=== PATIENT | female | born 1990 | race American Indian/Alaskan Native ===

== ENCOUNTER 2017-03-06 14:07 | Outpatient (CLI) | payer MEDICAID ==
[2017-03-06 14:39] VITALS: BP 136/74
== END 2017-03-06 15:05 | disposition home or self-care (01) ==
LOC: TRG 14:07
PROVIDERS: ATTEND Obstetrics & Gynecology
DX: O47.1 False labor at or after 37 completed weeks of gestation (principal); Z87.891 Personal history of nicotine dependence; Z3A.39 39 weeks gestation of pregnancy
CPT/HCPCS: 59025

== ENCOUNTER 2017-03-10 13:22 | Inpatient (IN) | payer MEDICAID ==
[2017-03-10] MEDS ORDERED: NARCAN 0.4 MG/1 ML IV PRN (15:50)
[2017-03-10] MEDS ORDERED: ZOFRAN IV PRN (15:50)
[2017-03-10] MEDS ORDERED: ePHEDrine SULFATE IV PRN (15:50)
[2017-03-10] MEDS ORDERED: STADOL IV PRN (15:50)
[2017-03-10] MEDS ORDERED: BRETHINE IVP PRN (15:50)
[2017-03-10] MEDS ORDERED: XYLOCAINE 2% INFILTRATI ONE (15:50)
[2017-03-10] MEDS ORDERED: BRETHINE SUB-Q PRN (15:50)
[2017-03-10] MEDS ORDERED: MINERAL OIL PO PRN (15:50)
--- NOTE | 2017-03-10 15:55 | History and Physical Report ---
History of Present Illness Date of examination: 03/10/17 Date of admission: 03/10/17 13:55 Chief complaint: contractions History of present illness: Pt is a 26 year old female JAY 03/07/17 at 40w4d who presents with irregular contractions. She had a BPP that was 6/8 (-2 for movement). She denies vaginal bleeding or leakage of fluid. She has had care at [facility] since transfer into care at 34 weeks complicated by insufficient care, h/o trichomonas treated with negative test of cure. She is GBS negative. Past History Past Medical History: no pertinent history Past Surgical History: D&C [employer]UL[employer] History: trichomonas (treated with negative test of cure ) Family/Genetic History: other (unknow; adopted ) Social history: no significant social history - Obstetrical History Expected Date of Delivery: 03/07/17 Actual Gestation: 40 Week(s) 4 Day(s) : 5 Para: 1 Hx # Term Pregnancies: 1 Number of Pregnancies: 0 Spontaneous Abortions: 1 Induced : 2 Number of Living Children: 1 Medications and Allergies Allergies Allergy/AdvReac Type Severity Reaction Status Date / Time No Known Allergies Allergy Verified 03/06/17 14:43 Home Medications Medication Instructions Recorded Confirmed Last Taken Type Vit-Fe Fumar-FA [ 1 tab PO QDAY 03/06/17 03/10/17 03/10/17 08: 00 History Vitamin] Active Meds: Active Medications Butorphanol Tartrate (Stadol) 2 mg IV Q2H PRN PRN Reason: Pain , Severe (7-10) Dinoprostone (Cervidil) 10 mg VG ONCE ONE Stop: 03/10/17 15:51 Ephedrine Sulfate (Ephedrine Sulfate) 10 mg IV Q2M PRN PRN Reason: Hypotension Fentanyl (Sublimaze) 100 mcg IV Q2H PRN PRN Reason: Labor Pain Lactated Ringer's (Lactated Ringers) 1,000 mls @ 125 mls/hr IV DIRECT BRAYDON Oxytocin/Sodium Chloride (Pitocin/Ns 20 Unit/1000ml Drip) 20 units in 1,000 mls @ 125 mls/hr IV DIRECT BRAYDON Oxytocin/Sodium Chloride (Pitocin/Ns 30 Unit/500ml) 30 units in 500 mls @ 4 mls /hr IV TITR BRAYDON PRN Reason: Protocol Lidocaine (Xylocaine 2%) 20 ml INFILTRATI ONCE ONE Stop: 03/10/17 15:51 Mineral Oil (Mineral Oil) 30 ml PO QHS PRN PRN Reason: Constipation Naloxone HCl (Narcan 0.4 Mg/1 Ml) 0.1 mg IV Q2MIN PRN PRN Reason: Res Rate </= 8 or 02 SAT < 92% Ondansetron HCl (Zofran) 4 mg IV Q8H PRN PRN Reason: Nausea And Vomiting Terbutaline Sulfate (Brethine) 0.25 mg SUB-Q ONCE PRN PRN Reason: Hyperstimulation/Hypertonicity Terbutaline Sulfate (Brethine) 0.25 mg IVP ONCE PRN PRN Reason: Hyperstimulation/Hypertonicity Review of Systems All systems: negative - Vital Signs Vital signs: Vital Signs Temp Pulse Resp BP Pulse Ox 97.5 F L 113 H 18 138/90 100 03/10/17 13:35 03/10/17 13:35 03/10/17 13:35 03/10/17 13:35 03/10/17 13:35 Temp Pulse Resp BP Pulse Ox 97.5 F L 88 18 138/90 99 03/10/17 13:35 03/10/17 15:44 03/10/17 13:35 03/10/17 13:35 03/10/17 15:44 - Physical Exam Breasts: Positive: deferred Cardiovascular: Regular rate Lungs: Positive: Clear to auscultation Abdomen: Positive: soft (gravid, obese ) Genitourinary (Female): Positive: normal external genitalia Uterus: Positive: enlarged (gravid ) Extremities: Positive: edema - Obstetrical FHR: category 2 Uterine Contraction Monitor Mode: External Cervical Dilatation: 8 Cervical Effacement Percentage: 80 station: -1 Uterine Contraction Pattern: Irregular Uterine Tone Measurement Phase: Resting Uterine Contraction Intensity: Moderate Results Result Diagrams: 03/10/17 18:09 03/10/17 16:20 All other labs normal. Assessment and Plan A: IUP at 40w4d Non-reassuring status Active labor Obesity Insufficient Care GBS negative P: Admit to labor and delivery. Transitional labor. Routine intrapartum care. Closely monitor maternal and status.
--- NOTE | 2017-03-10 15:58 | Ultrasound Report ---
BIOPHYSICAL PROFILE: INDICATION: Post dates. Abdominal pain. COMPARISON: None similar at this institution. TECHNIQUE: Transabdominal ultrasound with Doppler interrogation. 2 - breathing movements 0 - movements 2 - posture and tone 2 - Qualitative amniotic fluid volume 6 - TOTAL SCORE OF POSSIBLE 8 Heart Rate (bpm) 149 CONCLUSION: Findings, as above.
[2017-03-10] MEDS ORDERED: PITOCin/NS 20 UNIT/1000ML DRIP 20 UNITS/1,000 ML BAG IV SCH (16:00)
[2017-03-10] MEDS ORDERED: CERVIDIL VG ONE (16:00)
[2017-03-10] MEDS ORDERED: SUBLIMAZE IV PRN (16:03)
[2017-03-10 16:41] LABS: Bilirubin,Urine NEG (Negative); Blood,Urine NEG (Negative); Color,Urine Yellow (Yellow); Mucus,Urine 1+ /HPF; Nitrite,Urine NEG (Negative); Urobilinogen,Urine < 2.0 mg/dL (<2.0)
[2017-03-10 16:58] LABS: Hematocrit TNR % (30.3-42.9); Hemoglobin TNR gm/dl (10.1-14.3); Mean Corpuscular HGB Conc TNR % (30-34); Mean Corpuscular Hemoglobin TNR pg (28-32); Mean Corpuscular Volume TNR fl (79-97); Red Blood Count TNR M/mm3 (3.65-5.03)
[2017-03-10 16:59] LABS: Mean Platelet Volume TNR fl (6-12); Platelet Count TNR K/mm3 (140-440); Red Cell Distribution Width TNR % (13.2-15.2)
[2017-03-10 17:13] LABS: Alanine Aminotransferase 9 units/L (7-56); Uric Acid 5.8 mg/dL (3.5-7.6)
[2017-03-10] MEDS: LACTATED RINGERS 1,000 ML IV SCH (18:33)
[2017-03-10 18:48] LABS: Hematocrit 32.9 % (30.3-42.9); Hemoglobin 10.6 gm/dl (10.1-14.3); Mean Corpuscular HGB Conc 32 % (30-34); Mean Corpuscular Hemoglobin 27 pg (28-32); Mean Corpuscular Volume 85 fl (79-97); Platelet Count 168 K/mm3 (140-440); Red Blood Count 3.87 M/mm3 (3.65-5.03); Red Cell Distribution Width 14.7 % (13.2-15.2)
[2017-03-10] MEDS ORDERED: AMBIEN PO PRN (19:50)
[2017-03-11] MEDS: LACTATED RINGERS 1,000 ML IV SCH ×3 (02:57→04:57)
[2017-03-11] MEDS ORDERED: fentaNYL-BUPIV 2 MCG/ML-0.125% 200 MCG/100 ML BAG EPIDURAL ONE (04:03)
[2017-03-11] MEDS ORDERED: NARCAN 2 MG/2 ML IV PRN (04:22)
[2017-03-11] MEDS ORDERED: ePHEDrine SULFATE IV PRN (04:22)
--- NOTE | 2017-03-11 04:22 | Anesthesia Consultation ---
Anesthesia Consult and Med Hx Date of service: 03/11/17 - Airway Anesthetic Teeth Evaluation: Good ROM Head & Neck: Adequate Mental/Hyoid Distance: Adequate Mallampati Class: Class II Intubation Access Assessment: Good - Pulmonary Exam CTA: Yes - Cardiac Exam Cardiac Exam: No Murmur - Pre-Operative Health Status ASA Pre-Surgery Classification: ASA2 Proposed Anesthetic Plan: Epidural - Pulmonary Hx Asthma: No COPD: No Hx Pneumonia: No - Cardiovascular System Hx Hypertension: No - Central Nervous System Hx Seizures: No Hx Psychiatric Problems: No - Endocrine Hx Renal Disease: No Hx End Stage Renal Disease: No Hx Hypothyroidism: No Hx Hyperthyroidism: No - Hematic Hx Anemia: No Hx Sickle Cell Disease: No - Other Systems Hx Alcohol Use: No
[2017-03-11] MEDS ORDERED: PITOCin/NS 30 UNIT/500ML 30 UNITS/500 ML BAG IV SCH ×2 (04:25→06:00)
--- NOTE | 2017-03-11 04:25 | Event Note ---
Date: 03/11/17 Pt more comfortable with epidural. Category II tracing. Cervix: /1. SROM after epidural. Begin pitocin augmentation. Monitor maternal and status.
[2017-03-11] MEDS ORDERED: fentaNYL-BUPIV 2 MCG/ML-0.125% 200 MCG/100 ML BAG EPIDURAL SCH (05:00)
[2017-03-11] MEDS ORDERED: XYLOCAINE 2% INFILTRATI ONE (05:37)
--- NOTE | 2017-03-11 06:05 | Procedure Note ---
OB Delivery Note - Delivery Date of Delivery: 03/11/17 Surgeon: HANNAH DICKERSON Estimated blood loss: other (400 mL) - Vaginal Delivery presentation: vertex Delivery position: OP Intrapartum events: decreased FHT variability, extend. bradycardia Delivery induction: cervidil Delivery augmentation: rupture of membranes, pitocin Delivery monitor: external FHT, external uterine Route of delivery: vacuum extraction Indicators for instrumentation: nonreassuring FHR tracing Delivery placenta: spontaneous Delivery cord: 3 umbilical vessels Episiotomy: none Delivery laceration: 2nd degree (perineal ) Delivery repair: vicryl Anesthesia: local, epidural Delivery comments: Pt progressed to complete/complete/+1. Head was noted to be in occiput posterior position. bradycardia noted. Kiwi vacuum applied and head delivered with two pulls no pop offs. Head delivered in direct OP presentation, quickly followed by shoulders and body. placed on maternal abdomen and bulb suctioned. Terminal meconium. Cord clamped and cut and handed to NICU staff in attendance for vacuum. Cord blood collected. Placenta delivered spontaneously. Vagina and perineum explored. Second degree perineal repaired with 2-0 Vicryl in a standard fashion. EBL 400 mL. - A at 1 minute: 8 at 5 minutes: 9 Gender: Male (3766g (8lb 5 oz) @ 0531 am)
[2017-03-11] MEDS ORDERED: SODIUM CHLORIDE FLUSH SYRINGE 10 ML IV PRN (08:30)
[2017-03-11] MEDS ORDERED: NORCO 5/325 PO PRN (09:00)
[2017-03-11] MEDS ORDERED: PITOCin/NS 20 UNIT/1000ML DRIP 20 UNITS/1,000 ML BAG IV SCH (09:00)
[2017-03-11] MEDS ORDERED: DERMOPLAST TP PRN (09:00)
[2017-03-11] MEDS ORDERED: TYLENOL PO PRN (09:00)
[2017-03-11] MEDS ORDERED: BENADRYL PO PRN (09:00)
[2017-03-11] MEDS ORDERED: TUCKS PAD TP PRN (09:00)
[2017-03-11] MEDS ORDERED: LANSINOH TP PRN ×2 (09:00)
[2017-03-11] MEDS ORDERED: ZOFRAN IV PRN (09:00)
[2017-03-11] MEDS ORDERED: PHENERGAN PR PRN (09:00)
[2017-03-11] MEDS ORDERED: PHENERGAN PO PRN (09:00)
[2017-03-11] MEDS ORDERED: DULCOLAX PR PRN (10:00)
[2017-03-11] MEDS: FEOSOL PO SCH ×2 (10:54→21:44)
[2017-03-11] MEDS: MOTRIN PO SCH ×2 (10:54→16:14)
[2017-03-11 18:11] LABS: Hematocrit 30.4 % (30.3-42.9); Hemoglobin 10.1 gm/dl (10.1-14.3)
[2017-03-11] MEDS ORDERED: MILK OF MAGNESIA PO PRN (22:00)
--- NOTE | 2017-03-12 06:03 | Progress Note ---
Assessment and Plan A/P PPD #1 s/p VAVD doing well breast feeding 11.2-9.8 iron tabs continue routine PP orders d/c home tomorrow Subjective - Subjective Date of service: 03/12/17 Principal diagnosis: s/p VAVD Patient reports: appetite normal, voiding normally, pain well controlled, flatus , ambulating normally Lovilia: doing well, nursing well Objective - Vital Signs Latest vital signs: Vital Signs Temp Pulse Resp BP BP Pulse Ox 03/12/17 00:33 98.3 F 77 18 133/86 98 03/11/17 07:31 98.1 F 77 18 132/80 98 03/11/17 07:12 96 H 98 03/11/17 07:08 88 143/82 03/11/17 07:07 90 99 03/11/17 07:01 85 98 03/11/17 06:56 83 100 03/11/17 06:54 81 135/70 03/11/17 06:51 82 99 03/11/17 06:46 88 98 03/11/17 06:41 89 99 03/11/17 06:39 94 H 135/67 03/11/17 06:36 96 H 99 03/11/17 06:31 93 H 100 03/11/17 06:26 95 H 100 03/11/17 06:24 92 H 137/66 03/11/17 06:21 93 H 98 03/11/17 06:16 96 H 99 03/11/17 06:11 105 H 98 03/11/17 06:09 101 H 130/64 03/11/17 06:06 102 H 99 Intake and Output 03/11/17 03/11/17 03/12/17 15:59 23:59 07:59 Output Total 1100 Balance -1100 Output: Urine 1100 Void 1100 Other: Total, Output Amount 700 # Voids Void 1 - Exam Breasts: Present: normal Cardiovascular: Present: Regular rate, Normal S1 Lungs: Present: Clear to auscultation, Normal air movement Abdomen: Present: normal appearance, soft, normal bowel sounds. Absent: distention, tenderness, guarding Vulva: both: normal Uterus: Present: normal, firm, fundal height below umbilicus. Absent: bogginess , tenderness Extremities: Present: normal Deep Tendon Reflex Grade: Normal +2
[2017-03-12] MEDS: MOTRIN PO SCH ×3 (10:14→21:36)
[2017-03-12] MEDS: FEOSOL PO SCH ×2 (10:30→21:34)
[2017-03-12] MEDS ORDERED: BOOSTRIX IM ONE (11:00)
[2017-03-12] MEDS ORDERED: M-M-R II VACCINE SUB-Q ONE (11:00)
--- NOTE | 2017-03-13 08:16 | Progress Note ---
Assessment and Plan A/P PPD #2 s/p VAVD doing well breast feeding 11.2-9.8 iron tabs d/c home tomorrow f/u in 4 weeks Subjective - Subjective Date of service: 03/13/17 Principal diagnosis: s/p VAVD Patient reports: appetite normal, voiding normally, pain well controlled, flatus , ambulating normally : doing well, nursing well Objective - Vital Signs Latest vital signs: Vital Signs Temp Pulse Resp BP BP Pulse Ox 03/13/17 00:35 98.4 F 85 18 138/87 99 03/12/17 16:16 98.4 F 82 18 138/86 100 03/12/17 16:00 16 03/12/17 08:46 98.0 F 91 H 18 128/91 98 Intake and Output 03/12/17 03/13/17 03/13/17 23:59 07:59 15:59 Intake Total 360 240 Balance 360 240 Intake: Oral 360 240 Other: Total, Intake Amount 360 240 # Voids Void 1 1 - Exam Breasts: Present: normal Cardiovascular: Present: Regular rate, Normal S1 Lungs: Present: Clear to auscultation, Normal air movement Abdomen: Present: normal appearance, soft, normal bowel sounds. Absent: distention, tenderness, guarding Vulva: both: normal Uterus: Present: normal, firm, fundal height below umbilicus. Absent: bogginess , tenderness Extremities: Present: normal Deep Tendon Reflex Grade: Normal +2 Incision: Present: normal
--- NOTE | 2017-03-13 08:18 | Discharge Summary ---
Providers - Providers Date of Admission: 03/10/17 13:55 Date of discharge: 03/13/17 Attending physician: HANNAH DICKERSON 03/11/17 08:13 Consult to Extension Service Specialist In Charge [CONS] Routine Reason For Exam: assistance with , SNS Primary care physician: HANNAH DICKERSON Hospitalization Reason for admission: active labor Delivery: vacuum extraction Episiotomy: none Laceration: 2nd degree Other procedures: none complications: none Discharge diagnosis: IUP at term delivered baby: male Condition at discharge: Good Disposition: DC-01 TO HOME OR SELFCARE Plan - Discharge Medications Prescriptions: Ferrous Sulfate [Feosol 325 MG tab] 325 mg PO BID #60 tablet Ferrous Sulfate 325 mg PO BID #60 tablet. Ibuprofen [Motrin] 600 mg PO Q8H PRN #30 tablet PRN Reason: Pain Ibuprofen [Motrin] 800 mg PO Q8HR PRN #30 tablet PRN Reason: Pain - Provider Discharge Summary Activity: routine, no sex for 6 weeks Diet: routine Instructions: routine Additional instructions: [] Smoking cessation referral if applicable(refer to patient education folder for contact #) [] Refer to [facility] Booklet Call your doctor immediately for: * Fever > 100.5 * Heavy vaginal bleeding ( >1 pad per hour) * Severe persistent headache * Shortness of breath * Reddened, hot, painful area to leg or breast * Drainage or odor from incision. * Keep incision clean and dry at all times and follow doctor's instructions regarding bathing/showering - Follow up plan Follow up: HANNAH DICKERSNO MD [Primary Care Provider] - 04/02/17
[2017-03-13 10:13] VITALS: BP 124/79
[2017-03-13] MEDS: FEOSOL PO SCH (10:25)
== END 2017-03-13 10:40 | disposition home or self-care (01) | DRG 775 ==
LOC: TRG 13:22 → LD 13:55 → TRG 14:02 → OB 03-11 07:52
PROVIDERS: ADMIT Obstetrics & Gynecology; ATTEND Obstetrics & Gynecology
PROC: 10D07Z6 Extraction of Products of Conception, Vacuum, Via Natural or Artificial Opening (ICD-10-PCS; principal; 2017-03-11)
PROC: 0KQM0ZZ Repair Perineum Muscle, Open Approach (ICD-10-PCS; 2017-03-11)
PROC: 3E0R3BZ Introduction of Anesthetic Agent into Spinal Canal, Percutaneous Approach (ICD-10-PCS; 2017-03-11)
PROC: 00HU33Z Insertion of Infusion Device into Spinal Canal, Percutaneous Approach (ICD-10-PCS; 2017-03-11)
PROC: 3E0234Z Introduction of Serum, Toxoid and Vaccine into Muscle, Percutaneous Approach (ICD-10-PCS; 2017-03-12)
DX: O76 Abnormality in fetal heart rate and rhythm complicating labor and delivery (principal); O99.214 Obesity complicating childbirth; O77.0 Labor and delivery complicated by meconium in amniotic fluid; E66.9 Obesity, unspecified; O70.1 Second degree perineal laceration during delivery; Z68.37 Body mass index [BMI] 37.0-37.9, adult; Z3A.40 40 weeks gestation of pregnancy; Z37.0 Single live birth; Z23 Encounter for immunization
CPT/HCPCS: 36415; 59200; 76819; 81001; 82565; 83615; 84450; 84460; 84550; 85014; 85018; 85027; 86592; 86850; 86900; 86901; 88307; 99211; A6250; G0463; J0595; J2590; J3010; J7120

== ENCOUNTER 2021-12-02 10:11 | Outpatient (CLI) | payer MEDICAID ==
[2021-12-02 10:49] VITALS: BP 120/76
[2021-12-02] MEDS ORDERED: LACTATED RINGERS 1,000 ML IV ONE (12:11)
--- NOTE | 2021-12-02 13:02 | Ultrasound Report ---
ULTRASOUND BIOPHYSICAL PROFILE INDICATION: well being. COMPARISON: None available. FINDINGS: heart rate is 141 beats per minute. breathing movement = 2 Gross body movement = 2 tone = 2 Qualitative amniotic fluid volume = 2 IMPRESSION: biophysical profile = 10/21 Signer Name: Robert Chávez Jr, MD Signed: 12/02/2021 12:57 PM Workstation Name: [id number]
== END 2021-12-02 13:15 | disposition home or self-care (01) ==
LOC: TRG 10:11 → APU 10:34 → TRG 13:15
PROVIDERS: ATTEND Obstetrics & Gynecology
DX: O36.8130 Decreased fetal movements, third trimester, not applicable or unspecified (principal); Z3A.28 28 weeks gestation of pregnancy
CPT/HCPCS: 59025; 76819